=== PATIENT | female | born 1990 | race African-American/Black ===

== ENCOUNTER 2020-01-29 17:49 | Emergency (ER) | payer SELFPAY ==
[~2020-01-29] VITALS: Ht 167.6 cm; Wt 58.0 kg
[2020-01-29 17:55] VITALS: BP 128/86
== END 2020-01-30 07:42 | disposition left against medical advice (07) ==
LOC: ER 17:49
DX: Z53.21 Procedure and treatment not carried out due to patient leaving prior to being seen by health care provider (principal)